=== PATIENT | female | born 1985 | race Caucasian/White ===

== ENCOUNTER 2018-03-21 09:42 | Emergency (ER) | payer OTHER ==
[~2018-03-21] VITALS: Ht 177.8 cm; Wt 108.9 kg
[~2018-03-21 09:42] MED LIST: ACETAMINOPHEN-1 EAC1 PO; ALBUTEROL2.5 MG/31 INH; BACTRIM DS TAB1 EACH PO; CLEOCIN HCL150 MG PO; DIFLUCAN200 MG PO; GYNE-LOTRIMIN-745 GM TOP; IBUPROFEN 800800 M1 PO; KEFLEX250 MG PO; NOHOMEMEDICATIONS; NORCO 5-325 TA1 EACH PO; PENICILLIN V P500 MG PO; PERCOCET 5-3251 EACH PO; POLYMYXIN B/TMP10 ML OP; PROAIR HFA8.5 GM INH; PROMETHAZINE D480 ML PO; SILVADENE20 GM TP; TESSALON PERLE100 MG PO; VENTOLIN HFA 1818 GM INH; VICODIN 5-5001 EACH PO; ZOFRAN ODT4 MG PO; ZPAK PO
[2018-03-21] MEDS ORDERED: IBUPROFEN 800800 M1 PO (09:56)
[2018-03-21] MEDS ORDERED: FLEXERIL PO (09:57)
[2018-03-21] MEDS ORDERED: ALLERGY RELIEF10 M5 PO (09:57)
[2018-03-21 10:21] LABS: URINE BILIRUBIN NEGATIVE (Negative); URINE BLOOD 1+ (Negative); URINE CLARITY CLEAR; URINE COLOR YELLOW; URINE GLUCOSE-RANDOM NEGATIVE (Negative); URINE KETONES NEGATIVE (Negative); URINE NITRITE-REFLEX NEGATIVE (Negative); URINE PROTEIN TRACE (Negative); URINE SPECIFIC GRAVITY 1.025 (1.005-1.030); URINE UROBILINOGEN 0.2 E.U./dl (0.2-1.0)
[2018-03-21] MEDS ORDERED: ACETAMINOPHEN-1 EAC1 PO (10:25)
[2018-03-21] MEDS ORDERED: PREDNISONE 5 MG5 MG PO (10:25)
[2018-03-21] MEDS ORDERED: ROBAXIN 750 MG750 M1 PO (10:25)
[2018-03-21 10:26] LABS: URINE LEUKOCYTES-REFLEX 2+ (Negative)
[2018-03-21] MEDS ORDERED: BACTRIM DS TAB1 EACH PO (10:27)
[2018-03-21 10:33] LABS: SQUAMOUS >10 Many /LPF (0-3)
[2018-03-21 10:34] LABS: WBC CLUMPS Few (None Seen)
[2018-03-21 10:35] LABS: AMORPHOUS PHOSPHATES Few /LPF (None Seen); BACTERIA-REFLEX 1-9 Few /HPF (None Seen); CASTS None Seen /LPF (None Seen); MUCUS 0-3 Light strn/LPF (None Seen); URINE RBC 3-10 Few /HPF (0-2); URINE WBC-REFLEX 6-15 Few /HPF (0-5)
[2018-03-21 10:41] VITALS: BP 145/91
== END 2018-03-21 10:42 | disposition home or self-care (01) ==
LOC: M.ERS 09:42
PROVIDERS: Physician Assistant
DX: N39.0 Urinary tract infection, site not specified (principal); F17.210 Nicotine dependence, cigarettes, uncomplicated

== ENCOUNTER 2018-04-14 16:06 | Emergency (ER) | payer OTHER ==
[~2018-04-14] VITALS: Ht 177.8 cm; Wt 105.2 kg
[~2018-04-14 16:06] MED LIST changes: +ALLERGY RELIEF10 M5 PO; +FLEXERIL PO; +PREDNISONE 5 MG5 MG PO; +ROBAXIN 750 MG750 M1 PO
[2018-04-14] MEDS ORDERED: ALBUTEROL2.5 MG/31 INH (17:07)
[2018-04-14] MEDS ORDERED: PREDNISONE 20 M20 M1 PO (17:07)
[2018-04-14 17:10] VITALS: BP 140/85
== END 2018-04-14 17:14 | disposition home or self-care (01) ==
LOC: M.ERS 16:06
DX: J20.9 Acute bronchitis, unspecified (principal); J06.9 Acute upper respiratory infection, unspecified; F17.210 Nicotine dependence, cigarettes, uncomplicated; Z86.14 Personal history of Methicillin resistant Staphylococcus aureus infection

== ENCOUNTER 2018-08-14 10:42 | Emergency (ER) | payer OTHER ==
[~2018-08-14] VITALS: Ht 177.8 cm; Wt 97.5 kg
[~2018-08-14 10:42] MED LIST changes: +PREDNISONE 20 M20 M1 PO
[2018-08-14] MEDS ORDERED: NABUMETONE 750750 M1 PO (11:49)
[2018-08-14] MEDS ORDERED: TRAMADOL 50 MG50 MG PO (11:49)
[2018-08-14] MEDS ORDERED: AUGMENTIN 875-1 EACH PO (11:49)
[2018-08-14 12:49] VITALS: BP 131/68
== END 2018-08-14 12:49 | disposition home or self-care (01) ==
LOC: M.ERS 10:42
DX: G56.01 Carpal tunnel syndrome, right upper limb (principal); J01.90 Acute sinusitis, unspecified; Z90.49 Acquired absence of other specified parts of digestive tract; F17.210 Nicotine dependence, cigarettes, uncomplicated

== ENCOUNTER 2018-09-03 12:44 | Emergency (ER) | payer OTHER ==
[~2018-09-03] VITALS: Ht 177.8 cm; Wt 97.5 kg
[~2018-09-03 12:44] MED LIST changes: +AUGMENTIN 875-1 EACH PO; +NABUMETONE 750750 M1 PO; +TRAMADOL 50 MG50 MG PO
[2018-09-03 14:02] LABS: URINE BILIRUBIN NEGATIVE (Negative); URINE BLOOD NEGATIVE (Negative); URINE CLARITY CLOUDY; URINE COLOR YELLOW; URINE GLUCOSE-RANDOM NEGATIVE (Negative); URINE KETONES NEGATIVE (Negative); URINE LEUKOCYTES-REFLEX NEGATIVE (Negative); URINE NITRITE-REFLEX NEGATIVE (Negative); URINE PROTEIN NEGATIVE (Negative); URINE UROBILINOGEN 0.2 E.U./dl (0.2-1.0)
[2018-09-03 14:02] LABS: ABSOLUTE EOSINOPHILS 0.3 thou/uL (0.0-0.7); EOSINOPHILS 2.3 %; MCV 92.5 fL (80.0-100.0)
[2018-09-03 14:04] LABS: ABSOLUTE BASOPHILS 0.1 thou/uL (0.0-0.2); ABSOLUTE MONOCYTES 0.5 thou/uL (0.0-1.2); BASOPHILS 0.6 %; HEMATOCRIT 44.1 % (37.0-47.0); HEMOGLOBIN 14.7 gm/dL (12.0-15.0); LYMPHOCYTES 31.1 %; MCH 30.9 pg (26.0-34.0); MCHC 33.4 g/dL (28.0-37.0); MONOCYTES 3.8 %; MPV 9.1 fl. (7.2-11.1); NUCLEATED RBCS 0 /100WBC; PLATELET COUNT* 221 thou/uL (150-400); POLYS 62.2 %; RBC 4.77 mil/uL (4.20-5.00); RDW-CV 13.9 % (10.5-14.5); WBC 12.8 thou/uL (4.0-11.0)
[2018-09-03 14:09] LABS: CALCIUM 8.5 mg/dL (8.5-10.1); CREATININE 0.7 mg/dL (0.6-1.3); POTASSIUM 3.3 mmol/L (3.5-5.1)
[2018-09-03 14:14] LABS: ALBUMIN 3.3 g/dL (3.4-5.0); TOTAL BILIRUBIN 0.2 mg/dL (<0.1-1.0); TOTAL PROTEIN 7.1 g/dL (6.4-8.2)
[2018-09-03 14:18] LABS: SQUAMOUS 4-10 Moderate /LPF (0-3); URINE WBC-REFLEX None Seen /HPF (0-5)
[2018-09-03 14:19] LABS: BACTERIA-REFLEX None Seen /HPF (None Seen); MUCUS None Seen strn/LPF (None Seen); URINE RBC None Seen /HPF (0-2)
[2018-09-03 14:20] LABS: AMORPHOUS URATES Many /LPF (None Seen); CASTS None Seen /LPF (None Seen)
[2018-09-03 15:04] LABS: CRYSTALS None Seen /LPF (None Seen)
[2018-09-03] MEDS ORDERED: TRAMADOL 50 MG50 MG PO (15:45)
[2018-09-03 16:04] VITALS: BP 130/78
== END 2018-09-03 16:05 | disposition home or self-care (01) ==
LOC: M.ERS 12:44
PROVIDERS: Physician Assistant
DX: R10.12 Left upper quadrant pain (principal)

== ENCOUNTER 2019-12-27 03:53 | Emergency (ER) | payer OTHER ==
[~2019-12-27] VITALS: Ht 167.6 cm; Wt 86.2 kg
[2019-12-27 04:53] VITALS: BP 161/90
[2019-12-27] MEDS ORDERED: TRAMADOL 50 MG50 MG PO (04:53)
== END 2019-12-27 04:55 | disposition home or self-care (01) ==
LOC: M.ERS 03:53
DX: S69.81XA Other specified injuries of right wrist, hand and finger(s), initial encounter (principal); Z86.14 Personal history of Methicillin resistant Staphylococcus aureus infection; Z90.89 Acquired absence of other organs; F17.210 Nicotine dependence, cigarettes, uncomplicated; W22.8XXA Striking against or struck by other objects, initial encounter; Y92.89 Other specified places as the place of occurrence of the external cause; Y93.89 Activity, other specified; Y99.8 Other external cause status

== ENCOUNTER 2020-04-28 13:14 | Emergency (ER) | payer OTHER ==
[~2020-04-28] VITALS: Ht 180.3 cm; Wt 86.2 kg
[2020-04-28 15:10] LABS: URINE BILIRUBIN NEGATIVE (Negative); URINE BLOOD 2+ (Negative); URINE CLARITY CLEAR; URINE COLOR YELLOW; URINE GLUCOSE-RANDOM NEGATIVE (Negative); URINE KETONES NEGATIVE (Negative); URINE LEUKOCYTES-REFLEX 1+ (Negative); URINE PROTEIN NEGATIVE (Negative); URINE SPECIFIC GRAVITY >= 1.030 (1.005-1.030); URINE UROBILINOGEN 0.2 E.U./dl (0.2-1.0)
[2020-04-28 15:11] LABS: URINE NITRITE-REFLEX POSITIVE (Negative)
[2020-04-28] MEDS ORDERED: AUGMENTIN 875-1 EACH PO (15:32)
[2020-04-28] MEDS ORDERED: TRAMADOL 50 MG50 MG PO (15:36)
[2020-04-28] MEDS ORDERED: KEFLEX500 M1 PO (15:36)
[2020-04-28] MEDS ORDERED: BACTRIM DS TAB1 EACH PO (15:36)
[2020-04-28 15:41] LABS: BACTERIA-REFLEX >30 Many /HPF (None Seen); CASTS None Seen /LPF (None Seen); CRYSTALS None Seen /LPF (None Seen); SQUAMOUS 0-3 Few /LPF (0-3); URINE RBC 0-2 Rare /HPF (0-2); URINE WBC-REFLEX 6-15 Few /HPF (0-5)
[2020-04-28 16:16] VITALS: BP 128/98
== END 2020-04-28 16:16 | disposition home or self-care (01) ==
LOC: M.ERS 13:14
PROVIDERS: Nurse Practitioner Family
DX: N76.2 Acute vulvitis (principal); N39.0 Urinary tract infection, site not specified; F17.210 Nicotine dependence, cigarettes, uncomplicated; Z90.49 Acquired absence of other specified parts of digestive tract; Z86.14 Personal history of Methicillin resistant Staphylococcus aureus infection

== ENCOUNTER 2020-05-31 10:37 | Emergency (ER) | payer OTHER ==
[~2020-05-31] VITALS: Ht 180.3 cm; Wt 86.2 kg
[~2020-05-31 10:37] MED LIST changes: +KEFLEX500 M1 PO
[2020-05-31] MEDS ORDERED: IBUPROFEN 800800 MG PO (12:42)
[2020-05-31] MEDS ORDERED: PENICILLIN V P500 MG PO (12:42)
[2020-05-31] MEDS ORDERED: HYDROCODON-ACE1 EAC7 PO (12:42)
[2020-05-31 12:58] VITALS: BP 133/84
== END 2020-05-31 12:58 | disposition home or self-care (01) ==
LOC: M.ERS 10:37
DX: K02.9 Dental caries, unspecified (principal); F17.210 Nicotine dependence, cigarettes, uncomplicated; Z86.14 Personal history of Methicillin resistant Staphylococcus aureus infection

== ENCOUNTER 2021-01-29 21:06 | Emergency (ER) | payer OTHER ==
[~2021-01-29] VITALS: Ht 180.3 cm; Wt 86.2 kg
[~2021-01-29 21:06] MED LIST changes: +HYDROCODON-ACE1 EAC7 PO; +IBUPROFEN 800800 MG PO
[2021-01-29 22:08] VITALS: BP 144/87
== END 2021-01-29 22:08 | disposition home or self-care (01) ==
LOC: M.ERS 21:06
DX: S63.681A Other sprain of right thumb, initial encounter (principal); Z90.49 Acquired absence of other specified parts of digestive tract; W22.8XXA Striking against or struck by other objects, initial encounter; Y93.89 Activity, other specified; Y92.89 Other specified places as the place of occurrence of the external cause; Y99.8 Other external cause status

== ENCOUNTER 2021-02-20 04:03 | Emergency (ER) | payer OTHER ==
[~2021-02-20] VITALS: Ht 180.3 cm; Wt 86.2 kg
[2021-02-20 04:28] LABS: URINE BILIRUBIN NEGATIVE (Negative); URINE BLOOD TRACE (Negative); URINE CLARITY CLEAR; URINE COLOR YELLOW; URINE GLUCOSE-RANDOM NEGATIVE (Negative); URINE KETONES NEGATIVE (Negative); URINE LEUKOCYTES-REFLEX TRACE (Negative); URINE PROTEIN NEGATIVE (Negative); URINE SPECIFIC GRAVITY >= 1.030 (1.005-1.030); URINE UROBILINOGEN 0.2 E.U./dl (0.2-1.0)
[2021-02-20 04:30] LABS: URINE NITRITE-REFLEX POSITIVE (Negative)
[2021-02-20 04:36] LABS: AMP/METHAMP Negative (Negative); BARBITURATES Negative (Negative); BENZODIAZEPINES Negative (Negative); COCAINE Negative (Negative); METHADONE Negative (Negative); OPIATES Negative (Negative); PCP Negative (Negative); THC Negative (Negative)
[2021-02-20 04:43] LABS: HEMATOCRIT 43.2 % (37.0-47.0); HEMOGLOBIN 14.4 gm/dL (12.0-15.0); MCH 29.8 pg (26.0-34.0); MCHC 33.4 g/dL (28.0-37.0); MCV 89.5 fL (80.0-100.0); MPV 8.6 fl. (7.2-11.1); RBC 4.82 mil/uL (4.20-5.00); RDW-CV 13.7 % (10.5-14.5)
[2021-02-20 04:56] LABS: CALCIUM 8.5 mg/dL (8.5-10.1); CREATININE 0.7 mg/dL (0.6-1.3); POTASSIUM 3.4 mmol/L (3.5-5.1)
[2021-02-20 05:00] LABS: ALBUMIN 3.5 g/dL (3.4-5.0); TOTAL BILIRUBIN 0.2 mg/dL (<0.1-1.0); TOTAL PROTEIN 7.3 g/dL (6.4-8.2)
[2021-02-20 05:52] LABS: BACTERIA-REFLEX >30 Many /HPF (None Seen); CASTS None Seen /LPF (None Seen); CRYSTALS None Seen /LPF (None Seen); MUCUS 4-6 Moderate strn/LPF (None Seen); SQUAMOUS 0-3 Few /LPF (0-3); URINE WBC-REFLEX 6-15 Few /HPF (0-5); WBC CLUMPS Few (None Seen)
[2021-02-20] MEDS ORDERED: BACTRIM DS TAB1 EACH PO (08:33)
[2021-02-20] MEDS ORDERED: NORCO5 PO (08:57)
[2021-02-20] MEDS ORDERED: ZOFRAN ODT4 MG PO (08:57)
[2021-02-20 09:03] VITALS: BP 146/69
== END 2021-02-20 09:07 | disposition home or self-care (01) ==
LOC: M.ERS 04:03
PROVIDERS: Personal Emergency Response Attendant
DX: N39.0 Urinary tract infection, site not specified (principal); R11.2 Nausea with vomiting, unspecified; F17.210 Nicotine dependence, cigarettes, uncomplicated; Z90.49 Acquired absence of other specified parts of digestive tract; Z86.14 Personal history of Methicillin resistant Staphylococcus aureus infection

== ENCOUNTER 2021-07-16 14:36 | Emergency (ER) | payer OTHER ==
[~2021-07-16] VITALS: Ht 180.3 cm; Wt 98.9 kg
[~2021-07-16 14:36] MED LIST changes: +NORCO5 PO
[2021-07-16] MEDS ORDERED: NAPROSYN500 MG PO (16:06)
[2021-07-16 16:15] VITALS: BP 136/80
== END 2021-07-16 16:15 | disposition home or self-care (01) ==
LOC: M.ERS 14:36
DX: S93.692A Other sprain of left foot, initial encounter (principal); F17.210 Nicotine dependence, cigarettes, uncomplicated; X50.1XXA Overexertion from prolonged static or awkward postures, initial encounter; Y93.89 Activity, other specified; Y92.89 Other specified places as the place of occurrence of the external cause; Y99.8 Other external cause status